=== PATIENT | female | born 1985 | race Caucasian/White ===

== ENCOUNTER 2017-09-15 01:01 | Emergency (ER) | payer SELFPAY ==
[~2017-09-15] VITALS: Ht 157.5 cm; Wt 55.3 kg
[2017-09-15 01:08] VITALS: Ht 157.5 cm; Wt 55.3 kg
[2017-09-15 02:21] VITALS: BP 139/75
== END 2017-09-15 02:21 | disposition home or self-care (01) ==
LOC: ED 01:01
DX: H10.9 Unspecified conjunctivitis (principal)
CPT/HCPCS: J7030